=== PATIENT | female | born 1935 | race Caucasian/White ===

== ENCOUNTER 2016-04-27 19:30 | Observation (INO) | payer OTHER ==
[2016-04-27] MEDS ORDERED: ONDANSETRON HCL 4 MG/2 ML SOL IV ONE (19:46)
[2016-04-27 19:57] LABS: BASOPHILS % (AUTO) 0 % (0-3); EOSINOPHILS % (AUTO) 0 % (0-9); HEMATOCRIT 41 % (35-47); MEAN CORPUSCULAR VOLUME 93 fL (81-99); MONOCYTES % (AUTO) 6.2 % (0-12); NEUTROPHILS % (AUTO) 89.5 % (37-80)
[2016-04-27] MEDS ORDERED: ONDANSETRON HCL 4 MG/2 ML SOL ONE (19:58)
[2016-04-27 20:16] LABS: ALBUMIN 3.8 gm/dl (3.4-5.0); POTASSIUM 4.7 mMol/L (3.5-5.1)
[2016-04-27] MEDS ORDERED: SODIUM CHLORIDE 0.9% 1000 ML SOL IV SCH (20:45)
[2016-04-27 22:04] LABS: BILIRUBIN,URINE 1+ (NEGATIVE); COLOR,URINE Yellow; GLUCOSE, URINE (UA) NEGATIVE (NEGATIVE); KETONES,URINE 1+ (NEGATIVE); LEUKOCYTE ESTERASE ,URINE NEGATIVE (NEGATIVE); NITRATE,URINE NEGATIVE (NEGATIVE); OCCULT BLOOD,URINE 3+ (NEG-TRACE); PH,URINE 5.5; UROBILINOGEN,URINE 0.2 (0.2-1.0 EU)
[2016-04-27 22:32] LABS: APPEARANCE,URINE SLIGHTLY CLOUDY
[2016-04-27 22:41] LABS: ICTOTEST,URINE NEGATIVE (NEGATIVE)
[2016-04-28] MEDS ORDERED: MECLIZINE HYDROCHLORIDE 12.5 MG TAB PO PRN (00:38)
[2016-04-28] MEDS ORDERED: SODIUM CHLORIDE 0.9% 1000 ML SOL IV SCH (00:40)
[2016-04-28] MEDS: SODIUM CHLORIDE 0.9% 1000 ML SOL IV SCH ×2 (01:15→10:00)
[2016-04-28] MEDS: SODIUM CHLORIDE 0.9% FLUSH 10 ML SOL IV SCH ×4 (01:16→22:04)
[2016-04-28 08:15] VITALS: RESP 18
[2016-04-28 08:15] LABS: POTASSIUM 4.7 mMol/L (3.5-5.1)
[2016-04-28] MEDS ORDERED: ENOXAPARIN 40 MG SOL SC SCH (09:00)
[2016-04-28] MEDS ORDERED: CYANOCOBALAMIN 1000 MCG PO SCH (09:00)
[2016-04-28] MEDS: LOSARTAN POTASSIUM 50 MG TAB PO SCH (10:00)
[2016-04-28] MEDS: LOVASTATIN 10 MG TAB PO SCH (10:00)
[2016-04-28] MEDS: ENOXAPARIN 30 MG SOL SC SCH (10:02)
[2016-04-28 16:12] VITALS: TEMP 98.1
[2016-04-29] MEDS: SODIUM CHLORIDE 0.9% FLUSH 10 ML SOL IV SCH ×2 (00:40→10:58)
[2016-04-29 07:55] VITALS: BP 137/83; PULSE 73; O2SAT 97
[2016-04-29] MEDS: LOSARTAN POTASSIUM 50 MG TAB PO SCH (08:34)
[2016-04-29] MEDS: LOVASTATIN 10 MG TAB PO SCH (08:34)
[2016-04-29] MEDS: ENOXAPARIN 30 MG SOL SC SCH (08:35)
[2016-04-29] MEDS ORDERED: SULFAMETHOXAZOLE/TRIMETHOPRI 800/160 MG PO SCH (09:00)
[2016-04-29 11:28] LABS: CALCIUM 8.4 mg/dl (8.5-10.1); POTASSIUM 4.7 mMol/L (3.5-5.1)
[2016-04-29] MEDS ORDERED: METOPROLOL SUCCINATE 50 MG ER TAB PO SCH (13:03)
== END 2016-04-29 14:15 | disposition home or self-care (01) | DRG 684 ==
LOC: ED 19:30 → ACUTE CARE 23:38
PROVIDERS: ADMIT Emergency Medicine; ATTEND Emergency Medicine
DX: N17.9 Acute kidney failure, unspecified (principal); E86.0 Dehydration; R04.0 Epistaxis; R53.1 Weakness; W18.11XA Fall from or off toilet without subsequent striking against object, initial encounter; Z91.81 History of falling
CPT/HCPCS: 36415; 70160; 80048; 80053; 81001; 84484; 85025; 87088; 93005; 93012; 94762; 96365; 96366; 96374; 99219; 99225; 99283; 99285; J1650; J2405

== ENCOUNTER 2016-05-04 10:18 | Emergency (ER) | payer OTHER ==
[2016-05-04 10:34] VITALS: TEMP 97.4
[2016-05-04] MEDS ORDERED: TRAMADOL HYDROCHLORIDE 50 MG TAB PO ONE (10:42)
[2016-05-04] MEDS ORDERED: ACETAMINOPHEN 500 MG 500 MG TAB PO ONE (10:43)
[2016-05-04] MEDS ORDERED: TRAMADOL HYDROCHLORIDE 50 MG TAB ONE (10:45)
[2016-05-04] MEDS ORDERED: ACETAMINOPHEN 500 MG 500 MG TAB ONE (10:46)
[2016-05-04 13:08] VITALS: BP 106/52; PULSE 66; RESP 17; O2SAT 94
== END 2016-05-04 12:40 | disposition home or self-care (01) | DRG 552 ==
LOC: ED 10:18
DX: M54.5 Low back pain (principal)
CPT/HCPCS: 99283